=== PATIENT | male | born 1995 | race American Indian/Alaskan Native ===

== ENCOUNTER 2023-06-20 20:51 | Emergency (ER) | payer OTHER, MEDICAID, SELFPAY ==
[2023-06-20] VITALS (8 sets, daily range): BP systolic 111–164; BP diastolic 57–85; PULSE 66–93; RESP 13–20; TEMP 36.8; O2SAT 97–100; BMI 33.4
[2023-06-20] MEDS: MECLIZINE HCL 12.5 MG TABLET 25 MG PO (21:27)
--- NOTE | 2023-06-20 23:00 | ED_ITS ---
HPI - Dizziness General Chief Complaint: Dizziness Stated Complaint: dizzy, nauseaus Time Seen by Provider: 06/20/23 23:00 Source: patient Mode of arrival: Ambulatory History of Present Illness HPI Narrative: Patient 27-year-old male without significant past medical history presents today with dizziness. He reports he was getting out of shower when he suddenly felt dizzy. It happened both standing and sitting. He did feel little bit better with sweating. He felt nauseous. He denies any chest pain or palpitations. No numbness tingling weakness. He was able to get her ride over here. He received meclizine he is feeling a lot better. He reports feeling fine and in a normal state of health. Related Data Previous Rx's Medication Instructions Recorded meclizine 25 mg tablet 25 mg PO TID PRN dizziness #10 tabs 06/20/23 Allergies Allergy/AdvReac Type Severity Reaction Status Date / Time No Known Drug Allergies Allergy Verified 06/20/23 21:08 Patient History Social History Smoking Status: Current every day smoker Smoking Status: Current every day smoker tobacco type: cigarettes Substance Use Type: does not use Exam Initial Vital Signs Initial Vital Signs: Vital Signs Temperature 98.2 F 06/20/23 20:55 Pulse Rate 93 H 06/20/23 20:55 Respiratory Rate 16 06/20/23 20:55 Blood Pressure 164/85 H 06/20/23 20:55 Pulse Oximetry 100 06/20/23 20:55 Oxygen Delivery Method Room Air 06/20/23 20:55 GENERAL: Alert 27-year-old and in no acute distress. HEENT: Head atraumatic,EOMI, pupils reactive, face symmetric, moist mucous membranes CARDIOVASCULAR: Regular rate and rhythm without murmurs, rubs or gallops. RESPIRATORY: Breath sounds equal bilaterally, no wheezes rales or rhonchi. ABDOMEN: Soft, nontender. Normoactive bowel sounds all 4 quadrants. No guarding or rebound. EXTREMITIES: Normal range of motion, no clubbing or edema. Neurovascularly intact NEUROLOGICAL: Alert and oriented x4.Normal gait and speech. Cranial nerves II through XII grossly intact. Good [id number], good [id number], strength equal bilaterally, no dysarthria or aphasia, sensation in tact to soft touch bilaterally, no visual changes, no facial droop SKIN: Warm, dry, no laceration, no petechiae, no rashes or lesions. Scores NIH Stroke Scale Level of Conciousness: Alert, keenly responsive Ask month/age: Answers both questions correctly. Open/close eyes, close hand: Performs both tasks correctly Best gaze horizontal: Normal Visual ghotra: No visual loss Facial palsy: Normal symetrical movement Left arm drift: No drift for full 10 sec Right arm drift: No drift for full 10 sec Left leg drift: No drift for full 5 sec Right leg drift: No drift for full 5 sec Limb ataxia: Absent Sensory on face/arms/legs: Normal, no sensory loss Best language: No aphasia, normal Dysarthria: Normal Extinction or inattention: No abnormality Total NIH Stroke scale score: 0 Course Orders Ordered: ED Orders 06/20/23 21:09 EKG-12 Lead Stat Discontinued Medications Meclizine HCl (Meclizine Hcl 12.5 Mg Tablet) 25 mg PO NOW ONE Stop: 06/20/23 21:10 Last Admin: 06/20/23 21:27 Dose: 25 mg Documented By: Vital Signs Vital signs: Vital Signs - 8 hr 06/20/23 20:55 06/20/23 21:15 06/20/23 21:16 Temperature 98.2 F Pulse Rate 93 H 78 Respiratory Rate 16 Blood Pressure 164/85 H 131/78 Pulse Oximetry 100 99 Oxygen Delivery Method Room Air 06/20/23 21:30 06/20/23 21:30 06/20/23 22:00 Temperature Pulse Rate 73 76 Respiratory Rate 20 13 Blood Pressure 131/80 Pulse Oximetry 99 98 Oxygen Delivery Method 06/20/23 22:00 06/20/23 22:30 06/20/23 22:30 Temperature Pulse Rate 72 Respiratory Rate 13 Blood Pressure 128/63 111/58 L Pulse Oximetry 97 Oxygen Delivery Method 06/20/23 23:00 06/20/23 23:00 06/20/23 23:23 Temperature Pulse Rate 66 76 Respiratory Rate 17 19 Blood Pressure 119/57 L 119/57 L Pulse Oximetry 97 98 Oxygen Delivery Method Room Air Room Air MDM - Dizziness ECG Data Interpretation: Normal sinus rhythm rate 82 KS interval 198 QRS [address] changes no T- wave inversions MDM Narrative Medical decision making narrative: Patient 27-year-old male experienced about 20 minutes of dizziness worse with position felt nauseous received meclizine in his now feeling a lot better. Symptoms are most consistent with vertigo negative NIH stroke scale. He is a negative EKG symptoms did not last long. At this time really any need for any further workup he was not vomiting was not lasting for a long period of time. Discharge Plan Departure Patient Disposition: Home Clinical Impression: Vertigo Instructions: DI for Vertigo Activity Restrictions/Additional Instructions: *You have been diagnosed with vertigo *What to do: At this time I think you have inner ear problem call vertigo. This resolves on its own. *Continue to take medications as directed Meclizine 25 mg every 8 hours if needed for dizziness--> ride aid *Follow up with your primary care provider in 2-3 days or call [phone] *Return to ER if you should have increasing dizziness chest pain numbness tingling weakness or any new, worsening or concerning symptoms Prescriptions: New meclizine 25 mg tablet 25 mg PO TID PRN (Reason: dizziness) Qty: 10 0RF Referrals: Fay Gaston PA-C [Primary Care Provider] - Stand Alone Forms: Patient Portal/API
== END 2023-06-20 23:23 | disposition home or self-care (01) ==
PROVIDERS: Emergency Provider Emergency Medicine; PCP Physician Assistant
DX: R42 Dizziness and giddiness (principal); R03.0 Elevated blood-pressure reading, without diagnosis of hypertension
CPT/HCPCS: 93005; 99283

== ENCOUNTER 2023-09-24 17:52 | Emergency (ER) | payer OTHER, SELFPAY ==
[2023-09-24 18:15] VITALS: BP 140/81; PULSE 83; RESP 16; TEMP 36.6; O2SAT 99; BMI 33.4
--- NOTE | 2023-09-24 21:10 | ED.ABDPAIN ---
HPI - Abdominal Pain General Chief Complaint: Abdominal Pain Stated Complaint: hit in abdomen by plywood at work Time Seen by Provider: 09/24/23 20:59 Source: patient Mode of arrival: Ambulatory History of Present Illness HPI narrative: 27-year-old male presents for evaluation of abdominal pain. Patient was at work when a piece of plywood was flung from the work table and struck him in the abdomen. This happened at approximately 2:00 p.m. today. He states that he is still having some abdominal discomfort and is worried about internal bleeding. Denies use of blood thinners, denies nausea or vomiting. Related Data Previous Rx's Medication Instructions Recorded meclizine 25 mg tablet 25 mg PO TID PRN dizziness #10 tabs 06/20/23 Allergies Allergy/AdvReac Type Severity Reaction Status Date / Time No Known Drug Allergies Allergy Verified 08/27/23 15:44 Review of Systems Review of Systems Narrative: Negative except as noted above Patient History Social History Smoking Status: Current every day smoker Smoking Status: Current every day smoker tobacco type: cigarettes Substance Use Type: does not use Exam Initial Vital Signs Initial Vital Signs: Vital Signs Temperature 97.9 F 09/24/23 18:15 Pulse Rate 83 09/24/23 18:15 Respiratory Rate 16 09/24/23 18:15 Blood Pressure 140/81 09/24/23 18:15 Pulse Oximetry 99 09/24/23 18:15 Oxygen Delivery Method Room Air 09/24/23 18:15 Const: Awake, alert, no acute distress, nontoxic appearing Cardiac: regular rate, regular rhythm RESP: unlabored, clear bilaterally, no wheezing GI: Small abrasion horizontal across abdomen, no reproducible tenderness to light or deep palpation, no peritoneal signs Skin: Warm, Dry, intact, scant superficial horizontal abrasion over abdomen Neuro: AO x3, CN II-XII grossly intact, moves all extremities Psych: affect normal, mood normal, not suicidal, not homicidal Course Vital Signs Vital signs: Vital Signs - 8 hr 09/24/23 18:15 Temperature 97.9 F Pulse Rate 83 Respiratory Rate 16 Blood Pressure 140/81 Pulse Oximetry 99 Oxygen Delivery Method Room Air MDM - Abdominal Pain Differential Diagnosis Differential diagnosis: Likely abdominal pain, acute appendicitis and pancreatitis MDM Narrative Medical decision making narrative: Well-appearing patient presenting with persistent lower abdominal pain after minor blunt injury. Abdomen is soft, there is absolutely no peritoneal signs. No indication for advanced imaging at this time. Patient reassured, counseled to use Tylenol and Motrin as needed for pain and to return if symptoms persist or worsen. Discharge Plan Departure Patient Disposition: Home Clinical Impression: Abdominal contusion Instructions: DI for Abdominal Pain-Adult Prescriptions: No Action meclizine 25 mg tablet 25 mg PO TID PRN (Reason: dizziness) Qty: 10 0RF Referrals: Miscellaneous,Doctor, MD [Primary Care Provider] - Stand Alone Forms: Patient Portal/API, Work Release Note
[2023-09-24 21:13] VITALS: BP 140/75; PULSE 69; RESP 16; TEMP 36.9; O2SAT 98
== END 2023-09-24 21:25 | disposition home or self-care (01) ==
PROVIDERS: Emergency Provider Emergency Medicine
DX: S30.1XXA Contusion of abdominal wall, initial encounter (principal); W22.8XXA Striking against or struck by other objects, initial encounter
CPT/HCPCS: 99281

== ENCOUNTER 2023-10-19 14:35 | Emergency (ER) | payer OTHER, MEDICAID, SELFPAY ==
[2023-10-19] VITALS (17 sets, daily range): BP systolic 122–149; BP diastolic 56–87; PULSE 68–88; RESP 14–25; TEMP 36.2; O2SAT 95–100; BMI 33.9
--- NOTE | 2023-10-19 14:46 | DI.RAD.S_ITS ---
PROCEDURE: XR CHEST 1V INDICATIONS: chest pain TECHNIQUE: One view of the chest was acquired. COMPARISON: None. FINDINGS: Surgical changes and devices: None. Lungs and pleura: Lungs are clear. No pleural effusions or pneumothorax. Mediastinum: Mediastinal contours appear normal. Heart size is normal. Bones and chest wall: No suspicious bony lesions. Overlying soft tissues appear unremarkable. IMPRESSION: No acute pulmonary process. Dictated by: Laurie Sahu M.D. on 10/19/2023 at 15:06 Approved by: Laurie Sahu M.D. on 10/19/2023 at 15:06
[2023-10-19 15:14] LABS: Prothrombin Time 11.3 SECONDS (9.4-12.5)
[2023-10-19 15:16] LABS: PTT Partial Thromboplastin Tim 39 SECONDS (25.1-36.5)
[2023-10-19 15:19] LABS: Add Manual Diff / Slide Review NO; Alanine Aminotransferase 28 IU/L (<50); Albumin 4.7 g/dL (3.5-5.0); Albumin Globulin Ratio 1.4 (1.0-2.8); Alkaline Phosphatase 78 U/L (38-126); Aspartate Aminotransferase 26 IU/L (17-59); Basophils Absolute Auto 100 /uL (0-100); Basophils Percent Auto 0.9 % (0-2); Bilirubin Total 0.6 mg/dL (0.2-1.3); Blood Urea Nitrogen 13 mg/dL (9-20); Calcium 9.6 mg/dL (8.4-10.2); Carbon Dioxide 28 mmol/L (22-32); Chloride 105 mmol/L (98-107); Creatine Kinase 173 U/L (55-170); Eosinophils Absolute Auto 200 /uL (0-450); Eosinophils Percent Auto 2.8 % (2-4); Estimated Glomerular Filt Rate > 60 mL/min (>60); Globulin 3.4 g/dL (1.7-4.1); Glucose 109 mg/dL (70-100); HEMOLYSIS 20 (0-50); Hematocrit 41.6 % (41-53); Lipase 85 U/L (23-300); Lymphocytes Absolute Auto 2300 /uL (1100-4500); Lymphocytes Percent Auto 37.8 % (25-40); Magnesium 2.2 mg/dL (1.6-2.3); Mean Corpuscular HGB Conc 33.7 % (30-36); Mean Corpuscular Hemoglobin 26.7 PG (26-34); Mean Corpuscular Volume 79.3 fL (80-100); Monocytes Absolute Auto 500 /uL (0-900); Monocytes Percent Auto 8.2 % (3-14); Neutrophils Absolute Auto 3100 /uL (1500-7000); Neutrophils Percent Auto 50.3 % (50-75); Platelet Count 315 X10^3/uL (150-400); Potassium 3.6 mmol/L (3.4-5.1); Red Blood Cell Count 5.25 X10^6/uL (4.5-5.9); Red Cell Distribution Width 13.3 % (11.6-14.8); Sodium 140 mmol/L (137-145); Total Protein 8.1 g/dL (6.3-8.2); White Blood Cell Count 6.1 X10^3/uL (4.5-11.0)
[2023-10-19 15:30] LABS: Troponin I < 0.012 ng/mL (0.01-0.034)
[2023-10-19] MEDS: ASPIRIN 81 MG CHEW TAB 324 MG PO (16:01)
--- NOTE | 2023-10-19 19:05 | ED_ITS ---
HPI - Chest Pain General Chief Complaint: Chest Pain Stated Complaint: palpitations, left shoulder blade chest pain Time Seen by Provider: 10/19/23 18:01 Source: patient Mode of arrival: Ambulatory History of Present Illness HPI narrative: 27yoM presents for L chest shoulder blade pain and brief episode of R sided abdominal pain. Patient reports that he has had longstanding intermittent palpitations for quite some time. He is pending a cardiology referral so that he may joint in the [place] for these palpitations. Today he noticed a sharp pain behind his left shoulder blade as well as a brief sharp pain in his right side. He was concerned that either his heart or his gallbladder were acting up and decided to present for evaluation. Pain-free currently. Related Data Previous Rx's Medication Instructions Recorded meclizine 25 mg tablet 25 mg PO TID PRN dizziness #10 tabs 06/20/23 Allergies Allergy/AdvReac Type Severity Reaction Status Date / Time No Known Drug Allergies Allergy Verified 08/27/23 15:44 Review of Systems Review of Systems Narrative: Negative except as noted above Patient History Social History Smoking Status: Current every day smoker Smoking Status: Current every day smoker tobacco type: cigarettes Substance Use Type: does not use Exam Initial Vital Signs Initial Vital Signs: Vital Signs Temperature 97.1 F L 10/19/23 14:38 Pulse Rate 88 10/19/23 14:38 Respiratory Rate 20 10/19/23 14:38 Blood Pressure 149/87 H 10/19/23 14:38 Pulse Oximetry 100 10/19/23 14:38 Oxygen Delivery Method Room Air 10/19/23 14:38 Const: Awake, alert, no acute distress, nontoxic appearing Cardiac: regular rate, regular rhythm RESP: unlabored, clear bilaterally, no wheezing GI: Atraumatic, soft, nontender, nondistended, no rebound, no guarding MSK: Atraumatic, full range of motion, pulses equal Skin: Warm, Dry, intact, no rashes Neuro: AO x3, CN II-XII grossly intact, moves all extremities Course Orders Ordered: Discontinued Medications Aspirin (Aspirin 81 Mg Chew Tab) 324 mg PO NOW ONE Stop: 10/19/23 14:46 Last Admin: 10/19/23 16:01 Dose: 324 mg Documented By: JOSSY Vital Signs Vital signs: Vital Signs - 8 hr 10/19/23 14:38 10/19/23 15:16 10/19/23 15:17 Temperature 97.1 F L Pulse Rate 88 85 Respiratory Rate 20 Blood Pressure 149/87 H 133/70 Pulse Oximetry 100 100 Oxygen Delivery Method Room Air 10/19/23 15:17 10/19/23 15:30 10/19/23 15:30 Temperature Pulse Rate 81 75 Respiratory Rate 14 15 Blood Pressure 136/72 Pulse Oximetry 100 95 Oxygen Delivery Method 10/19/23 15:46 10/19/23 15:46 10/19/23 16:00 Temperature Pulse Rate 74 Respiratory Rate 15 Blood Pressure 138/60 124/56 L Pulse Oximetry 99 Oxygen Delivery Method 10/19/23 16:00 10/19/23 16:15 10/19/23 16:15 Temperature Pulse Rate 76 76 Respiratory Rate 19 19 Blood Pressure 124/60 Pulse Oximetry 98 99 Oxygen Delivery Method 10/19/23 16:30 10/19/23 16:30 10/19/23 16:45 Temperature Pulse Rate 75 Respiratory Rate 16 Blood Pressure 123/61 124/63 Pulse Oximetry 99 Oxygen Delivery Method 10/19/23 16:45 10/19/23 17:00 10/19/23 17:00 Temperature Pulse Rate 79 77 Respiratory Rate 20 24 Blood Pressure 130/68 Pulse Oximetry 100 99 Oxygen Delivery Method 10/19/23 17:15 10/19/23 17:15 10/19/23 17:30 Temperature Pulse Rate 69 Respiratory Rate 25 H Blood Pressure 136/72 127/65 Pulse Oximetry 100 Oxygen Delivery Method 10/19/23 17:30 10/19/23 17:45 10/19/23 17:45 Temperature Pulse Rate 75 78 Respiratory Rate 21 15 Blood Pressure 138/60 Pulse Oximetry 100 98 Oxygen Delivery Method MDM - Chest Pain Differential Diagnosis Differential diagnosis: Likely fracture of rib, pneumothorax and stable angina Lab Data 10/19/23 14:57 10/19/23 14:57 Labs: Lab Results 10/19/23 Range/Units 14:57 WBC 6.1 (4.5-11.0) X10^3/uL RBC 5.25 (4.5-5.9) X10^6/uL Hgb 14.0 (13.5-17.5) g/dL Hct 41.6 (41-53) % MCV 79.3 L (80-100) fL MCH 26.7 (26-34) PG MCHC 33.7 (30-36) % RDW 13.3 (11.6-14.8) % Plt Count 315 (150-400) X10^3/uL Neut % (Auto) 50.3 (50-75) % Lymph % (Auto) 37.8 (25-40) % [place] % (Auto) 8.2 (3-14) % Eos % (Auto) 2.8 (2-4) % Baso % (Auto) 0.9 (0-2) % Neut # (Auto) 3100 (5305-1479) /uL Lymph # (Auto) 2300 (5304-5340) /uL [place] # (Auto) 500 (0-900) /uL Eos # (Auto) 200 (0-450) /uL Baso # (Auto) 100 (0-100) /uL PT 11.3 (9.4-12.5) SECONDS INR 1.0 (0.9-1.3) APTT 39 H (25.1-36.5) SECONDS Sodium 140 (137-145) mmol/L Potassium 3.6 (3.4-5.1) mmol/L Chloride 105 (98-107) mmol/L Carbon Dioxide 28 (22-32) mmol/L BUN 13 (9-20) mg/dL Creatinine 0.65 L (0.66-1.25) mg/dL Estimated GFR > 60 (>60) mL/min BUN/Creatinine Ratio 20.0 (6-22) Glucose 109 H (70-100) mg/dL Calcium 9.6 (8.4-10.2) mg/dL Magnesium 2.2 (1.6-2.3) mg/dL Total Bilirubin 0.6 (0.2-1.3) mg/dL AST 26 (17-59) IU/L ALT 28 (<50) IU/L Alkaline Phosphatase 78 (38-126) U/L Total Creatine Kinase 173 H (55-170) U/L Troponin I < 0.012 (0.01-0.034) ng/mL Total Protein 8.1 (6.3-8.2) g/dL Albumin 4.7 (3.5-5.0) g/dL Globulin 3.4 (1.7-4.1) g/dL Albumin/Globulin Ratio 1.4 (1.0-2.8) Lipase 85 (23-300) U/L Imaging Data Chest x-ray: Radiologist's Impression: PROCEDURE: XR CHEST 1V INDICATIONS: chest pain TECHNIQUE: One view of the chest was acquired. COMPARISON: None. FINDINGS: Surgical changes and devices: None. Lungs and pleura: Lungs are clear. No pleural effusions or pneumothorax. Mediastinum: Mediastinal contours appear normal. Heart size is normal. Bones and chest wall: No suspicious bony lesions. Overlying soft tissues appear unremarkable. IMPRESSION: No acute pulmonary process. Dictated by: Laurie Sahu M.D. on 10/19/2023 at 15:06 Approved by: Laurie Sahu M.D. on 10/19/2023 at 15:06 ECG Data Interpretation: Normal sinus rhythm, 81 beats per minute. Normal [place], normal intervals, no ST T wave changes MDM Narrative Medical decision making narrative: Well appearing patient with brief chest and abdominal pain, pain free currently. Abdomen is soft, heart score 0 based on age, no known risk factors. Laboratory work is reviewed, unremarkable. EKG is sinus rhythm without concerning findings and chest x-ray shows no acute abnormalities. Patient relieved to know that his labs and other studies are normal and we will follow up with primary care. Discharge Plan Departure Patient Disposition: Home Clinical Impression: Chest pain, Palpitations Instructions: DI for Chest Pain Activity Restrictions/Additional Instructions: Everything with your heart and your gallbladder appeared normal today. I recommend following up with the primary care physician to discuss the possibility of a heart monitor to see why you were experiencing these intermittent palpitations. Prescriptions: No Action meclizine 25 mg tablet 25 mg PO TID PRN (Reason: dizziness) Qty: 10 0RF Referrals: Miscellaneous,Doctor, MD [Primary Care Provider] - Stand Alone Forms: Patient Portal/API
== END 2023-10-19 19:25 | disposition home or self-care (01) ==
PROVIDERS: Emergency Medicine; Emergency Provider Emergency Medicine
DX: R07.9 Chest pain, unspecified (principal); R00.2 Palpitations; R10.9 Unspecified abdominal pain
CPT/HCPCS: 36415; 71045; 80053; 82550; 83690; 83735; 84484; 85025; 85610; 85730; 93005; 93010; 99284

== ENCOUNTER → 2023-12-23 10:05 | Outpatient (CLI) | payer OTHER, MEDICAID, SELFPAY ==
[2023-12-23 10:50] LABS: Influenza A - CEPHEID Flu A NEGATIVE (NEGATIVE); Influenza B - CEPHEID Flu B NEGATIVE (NEGATIVE); Respiratory Syncytial Virus Negative (Negative)
[2023-12-23 12:37] LABS: COVID-19 CEPHEID 4-PLEX PCR Negative (Negative)
== END ==
PROVIDERS: Visit Provider Physician Assistant Medical
DX: R05.9 Cough, unspecified (principal)
CPT/HCPCS: 87635; 87400 ×2; 87420; 0241U